=== PATIENT | female | born 1950 | race Caucasian/White ===

== ENCOUNTER 2016-05-31 13:37 | Emergency (ER) | payer OTHER ==
[~2016-05-31] VITALS: Ht 165.1 cm; Wt 84.8 kg
[2016-05-31 14:23] LABS: HEMATOCRIT 37.6 % (36.0-46.0); MCH 30.9 PG (29.0-34.0); MCHC 33.5 G/DL (30.0-36.0); MCV 92.2 FL (83-99); MEAN PLAT.VOLUME 10.3 uM^3 (9.5-12.4); PLATELET COUNT 233 K/uL (156-360); RBC DIS.WIDTH-CV 12.7 % (11.8-14.6); RBC DIS.WIDTH-SD 41.9 % (39-53); RED BLOOD COUNT 4.08 M/uL (3.80-5.20); WHITE BLOOD COUNT 6.9 K/uL (4.1-10.2)
[2016-05-31 14:36] LABS: CHLORIDE 105 mEq/L (99-109); POTASSIUM 4.1 mEq/L (3.7-5.4); SODIUM 140 mEq/L (136-147)
[2016-05-31 14:38] LABS: GLUCOSE 99 mg/dL (70-99)
[2016-05-31 14:39] LABS: ANION GAP 9 MEQ/L (2-14)
[2016-05-31 14:42] LABS: GFR ESTIMATE (CALCULATED) 43 mL/min/; UREA NITROGEN (BUN) 20 mg/dL (9-23)
[2016-05-31 15:58] LABS: ADD MIUA? YES; BILIRUBIN NEGATIVE; BLOOD NEGATIVE; COLOR YELLOW ((YELLOW)); GLUCOSE (STRIP) NEGATIVE; KETONES NEGATIVE; LEUKOCYTES SMALL; NITRITE NEGATIVE; PROTEIN (STRIP) NEGATIVE; SPECIFIC GRAVITY 1.018 (1.000-1.030)
[2016-05-31 16:31] LABS: EPITHELIAL CELLS RARE /HPF; MUCUS NONE SEEN /LPF; RED BLOOD CELLS RARE /HPF (0-5); WHITE BLOOD CELLS RARE /HPF (0-5)
[2016-05-31 16:32] LABS: BACTERIA NONE SEEN /HPF; CASTS NONE SEEN /LPF; CRYSTALS NONE SEEN; UCUL ADDED? NO
[2016-05-31] MEDS ORDERED: BACTRIM,SEPT1 TABLET PO (16:49)
[2016-05-31] MEDS ORDERED: PHENAZOPYRIDIN100 MG PO (16:49)
[2016-05-31] MEDS ORDERED: HYDROCHLOROTHIA25 MG PO (16:50)
[2016-05-31] MEDS ORDERED: CALCIUM 600 +1 EAC4 PO (16:50)
[2016-05-31] MEDS ORDERED: LOSARTAN POTASS25 MG PO (16:50)
[2016-05-31] MEDS ORDERED: FISH OIL 1,4001 EACH PO (16:50)
[2016-05-31] MEDS ORDERED: PHILLIPS' COLO1 EACH PO (16:52)
[2016-05-31] MEDS ORDERED: TORADOL10 MG PO (19:05)
[2016-05-31 19:23] VITALS: BP 129/71
== END 2016-05-31 19:28 | disposition home or self-care (01) ==
LOC: EME 13:37
DX: N39.0 Urinary tract infection, site not specified (principal); M54.5 Low back pain; Z87.440 Personal history of urinary (tract) infections; Z87.891 Personal history of nicotine dependence
CPT/HCPCS: 74176; 80048; 81003; 85027; 99281; 99285